=== PATIENT | female | born 1990 | race Caucasian/White ===

== ENCOUNTER 2017-06-30 09:49 | Emergency (ER) | payer BC, MEDICAID, OTHER ==
[~2017-06-30] VITALS: Ht 165.1 cm; Wt 67.0 kg
[2017-06-30 11:00] VITALS: BP 123/66
== END 2017-06-30 11:57 | disposition home or self-care (01) ==
LOC: ER 11:52
DX: S60.561A Insect bite (nonvenomous) of right hand, initial encounter (principal); W57.XXXA Bitten or stung by nonvenomous insect and other nonvenomous arthropods, initial encounter; Y93.89 Activity, other specified; Y92.89 Other specified places as the place of occurrence of the external cause; Y99.8 Other external cause status
CPT/HCPCS: 99281

== ENCOUNTER → 2020-04-11 | Outpatient (CLI) | payer BC ==
[~2020-04-11] MED LIST: GADOBENATE DIMEGLUMINE 529 MG/ML 10ML IV ONE
== END | disposition home or self-care (01) ==
LOC: RAD 11:20
PROVIDERS: ATTEND Obstetrics & Gynecology Obstetrics
DX: Q51.3 Bicornate uterus (principal); Q51.20 Other doubling of uterus, unspecified
CPT/HCPCS: 72197; A9577

== ENCOUNTER → 2020-04-15 | Outpatient (CLI) | payer BC | END | disposition home or self-care (01) | LOC: LAB 08:10 | PROVIDERS: ATTEND Obstetrics & Gynecology Obstetrics | DX: Z01.818 Encounter for other preprocedural examination (principal); Z11.59 Encounter for screening for other viral diseases | CPT/HCPCS: C9803; U0003 ==

== ENCOUNTER → 2020-04-18 | Outpatient (CLI) | payer BC | END | disposition home or self-care (01) | LOC: MAMMO 08:43 | PROVIDERS: ATTEND Obstetrics & Gynecology Obstetrics | DX: Z12.31 Encounter for screening mammogram for malignant neoplasm of breast (principal); Z80.3 Family history of malignant neoplasm of breast | CPT/HCPCS: 76642; 77067 ==

== ENCOUNTER 2020-07-08 21:52 | Emergency (ER) | payer BC ==
[~2020-07-08] VITALS: Ht 167.6 cm; Wt 75.0 kg
[2020-07-08 23:17] VITALS: BP 144/94
== END 2020-07-08 23:37 | disposition home or self-care (01) ==
LOC: ER 23:22
DX: T78.40XA Allergy, unspecified, initial encounter (principal); X58.XXXA Exposure to other specified factors, initial encounter
CPT/HCPCS: 99283

== ENCOUNTER 2022-11-16 10:40 | Emergency (ER) | payer BC ==
[~2022-11-16] VITALS: Ht 165.1 cm; Wt 85.0 kg
[2022-11-16] MEDS ORDERED: HYDR-4001 MT (12:00)
[2022-11-16] MEDS ORDERED: IBUPROFEN 600MG TABLET PO ONE (12:00)
[2022-11-16 12:14] VITALS: BP 118/82
== END 2022-11-16 12:27 | disposition home or self-care (01) ==
LOC: ER 10:40
DX: S96.812A Strain of other specified muscles and tendons at ankle and foot level, left foot, initial encounter (principal); X58.XXXA Exposure to other specified factors, initial encounter; Y93.67 Activity, basketball; Y92.89 Other specified places as the place of occurrence of the external cause; Y99.8 Other external cause status
CPT/HCPCS: 81025; 99282

== ENCOUNTER → 2022-11-23 | Outpatient (CLI) | payer BC ==
[~2022-11-23] MED LIST changes: -GADOBENATE DIMEGLUMINE 529 MG/ML 10ML IV ONE; +HYDR-4001 MT
== END | disposition home or self-care (01) ==
LOC: MRI 10:37
PROVIDERS: ATTEND Internal Medicine
DX: S86.012A Strain of left Achilles tendon, initial encounter (principal); X58.XXXA Exposure to other specified factors, initial encounter; Y93.89 Activity, other specified; Y92.89 Other specified places as the place of occurrence of the external cause; Y99.8 Other external cause status
CPT/HCPCS: 73721

== ENCOUNTER → 2022-11-30 | Day surgery (SDC) | payer BC ==
[~2022-11-30] VITALS: Ht 165.1 cm; Wt 84.8 kg
[~2022-11-30] MED LIST changes: +ALBUTEROL 6.7GM HFA INHALER ONE; +BUPIVACAINE HCL/PF 0.25% (2.5MG/ML) 10ML ONE; +CEFAZOLIN SODIUM 1000MG/VIAL ONE; +DEXAMETHASONE 4MG/ML 1ML VIAL ONE; +FENTANYL CITRATE/PF 50MCG/ML 2ML VIAL ONE; +GLYCOPYRROLATE 0.2 MG/ML 2ML VIAL ONE; +HYDROMORPHONE HCL/PF 2MG/ML CPJ IV PRN; +HYDROMORPHONE HCL/PF 2MG/ML CPJ ONE; +LACTATED RINGERS 1,000 ML IV SCH; +LIDOCAINE HCL 1% 20ML VIAL (Pyxis) INJ ONE; +LIDOCAINE HCL/EPINEPHRINE 1%-EPI 1:100,000 20 ML VIAL ONE; +MEPERIDINE HCL/PF 25MG/ML CPJ IV PRN; +METOCLOPRAMIDE HCL 10MG/2ML VIAL ONE; +MIDAZOLAM HCL 2 MG/2 ML VIAL ONE; +NALOXONE HCL 0.4MG/ML VIAL IV PRN; +ONDANSETRON HCL 4MG/2ML INJ IV PRN; +ONDANSETRON HCL 4MG/2ML INJ ONE; +POLYMYXIN B SULFATE 500000 UNITS/VIAL ONE; +PROPOFOL 200MG/20ML VIAL IV ONE; +ROCURONIUM BROMIDE 10MG/ML VIAL 5ML IV ONE; +ROPIVACAINE HCL 1% 20 ML VIAL EPI ONE; +SODIUM CHLORIDE 0.9% 1,000 ML IV SCH; +VANCOMYCIN HCL 1 GM/VIAL ONE
[2022-11-30 11:38] LABS: CLARITY URINE CLEAR (CLEAR); COLOR URINE YELLOW (YELLOW); KETONES URINE NEGATIVE (NEGATIVE); LEUKOCYTE ESTERASE URINE 1+ (NEGATIVE); NITRITE URINE NEGATIVE (NEGATIVE); OCCULT BLOOD URINE NEGATIVE (NEGATIVE); PROTEIN URINE NEGATIVE (NEGATIVE); SPECIFIC GRAVITY URINE 1.022 (1.005-1.030)
[2022-11-30 11:40] LABS: UCG SCREEN NEGATIVE
[2022-11-30 11:48] LABS: BASOPHILS % 0.3 % (0.0-2.0); EOSINOPHILS % 0.8 % (0.0-5.0); HEMATOCRIT. 43.7 % (36.0-48.0); HEMOGLOBIN. 15.5 g/dL (12.0-16.0); LYMPHOCYTES % 24.9 % (20.0-50.0); MEAN CORPUSCULAR VOLUME 93.2 fL (81.0-99.0); MEAN PLATELET VOLUME 8.2 fl (7.4-10.4); PLATELET 383 x1000/uL (130-400); RED BLOOD CELL COUNT 4.69 mill/uL (4.2-5.4); RED CELL DISTRIBUTION WIDTH 12.4 % (11.6-14.6)
[2022-11-30 11:49] LABS: CHLORIDE 106 mEq/L (98-107)
== END | disposition home or self-care (01) ==
LOC: OR 11:10
DX: S86.012A Strain of left Achilles tendon, initial encounter (principal); Z79.899 Other long term (current) drug therapy; Z98.890 Other specified postprocedural states; Z20.822 Contact with and (suspected) exposure to COVID-19; X58.XXXA Exposure to other specified factors, initial encounter; Y93.89 Activity, other specified; Y92.89 Other specified places as the place of occurrence of the external cause; Y99.8 Other external cause status
CPT/HCPCS: 27650; 36415; 80053; 81003; 81025; 85025; 87426; C9803; J0690; J1100; J1170; J2250; J2405; J2704; J2765; J3010; J3370; J3490; J2795

== ENCOUNTER → 2024-03-28 | Outpatient (CLI) | payer BC ==
[~2024-03-28] MED LIST changes: -ALBUTEROL 6.7GM HFA INHALER ONE; -BUPIVACAINE HCL/PF 0.25% (2.5MG/ML) 10ML ONE; -CEFAZOLIN SODIUM 1000MG/VIAL ONE; -DEXAMETHASONE 4MG/ML 1ML VIAL ONE; -FENTANYL CITRATE/PF 50MCG/ML 2ML VIAL ONE; -GLYCOPYRROLATE 0.2 MG/ML 2ML VIAL ONE; -HYDROMORPHONE HCL/PF 2MG/ML CPJ IV PRN; -HYDROMORPHONE HCL/PF 2MG/ML CPJ ONE; -LACTATED RINGERS 1,000 ML IV SCH; -LIDOCAINE HCL 1% 20ML VIAL (Pyxis) INJ ONE; -LIDOCAINE HCL/EPINEPHRINE 1%-EPI 1:100,000 20 ML VIAL ONE; -MEPERIDINE HCL/PF 25MG/ML CPJ IV PRN; -METOCLOPRAMIDE HCL 10MG/2ML VIAL ONE; -MIDAZOLAM HCL 2 MG/2 ML VIAL ONE; -NALOXONE HCL 0.4MG/ML VIAL IV PRN; -ONDANSETRON HCL 4MG/2ML INJ IV PRN; -ONDANSETRON HCL 4MG/2ML INJ ONE; -POLYMYXIN B SULFATE 500000 UNITS/VIAL ONE; -PROPOFOL 200MG/20ML VIAL IV ONE; -ROCURONIUM BROMIDE 10MG/ML VIAL 5ML IV ONE; -ROPIVACAINE HCL 1% 20 ML VIAL EPI ONE; -SODIUM CHLORIDE 0.9% 1,000 ML IV SCH; -VANCOMYCIN HCL 1 GM/VIAL ONE
[2024-03-28 11:48] LABS: BASOPHILS % 0.4 % (0.0-2.0); EOSINOPHILS % 0.7 % (0.0-5.0); HEMATOCRIT. 39.4 % (36.0-48.0); LYMPHOCYTES % 20.1 % (20.0-50.0); MEAN CORPUSCULAR HEMOGLOBIN 32.4 pg (28.0-32.0); MEAN CORPUSCULAR HGB CONC 35.4 g/dL (31.0-37.0); MEAN CORPUSCULAR VOLUME 91.5 fL (81.0-99.0); MEAN PLATELET VOLUME 8.4 fl (7.4-10.4); MONOCYTES % 8.8 % (2.0-8.0); PLATELET 329 x1000/uL (130-400); RED BLOOD CELL COUNT 4.31 mill/uL (4.2-5.4); RED CELL DISTRIBUTION WIDTH 13.7 % (11.6-14.6); WHITE BLOOD COUNT 6.3 x1000/uL (4.5-11.0)
[2024-03-28 13:46] LABS: HEPATITIS B SURFACE ANTIGEN NEGATIVE (Negative)
[2024-03-28 14:06] LABS: HEPATITIS A AB IGM NEGATIVE (Negative)
[2024-03-28 14:07] LABS: HEPATITIS B CORE AB IGM NEGATIVE (Negative); HEPATITIS C AB NON REACTIVE (Neg) (Negative)
[2024-03-28 21:07] LABS: THYROID STIMULATING HORMONE 3.44 uIU/mL (0.55-4.78)
[2024-03-28 21:08] LABS: T4 FREE 0.9 ng/dL (0.89-1.76)
[2024-03-29 09:12] LABS: T PALLIDUM FTA-ABS SERUM Non Reactive (Non Reactive)
[2024-03-30 04:10] LABS: RUBELLA ABS IGM < 20.0 AU/mL (0.0-19.9)
== END | disposition home or self-care (01) ==
LOC: LAB 10:30
PROVIDERS: ATTEND Obstetrics & Gynecology Obstetrics
DX: Z34.00 Encounter for supervision of normal first pregnancy, unspecified trimester (principal); E55.9 Vitamin D deficiency, unspecified
CPT/HCPCS: 36415; 82306; 83021; 83036; 84439; 84443; 85025; 85660; 86592; 86705; 86706; 86709; 86762; 86765; 86850; 86900; 87340; 87389

== ENCOUNTER → 2024-03-31 | Outpatient (CLI) | payer BC | END | disposition home or self-care (01) | LOC: LAB 07:28 | PROVIDERS: ATTEND Obstetrics & Gynecology Obstetrics | DX: Z34.00 Encounter for supervision of normal first pregnancy, unspecified trimester (principal); E55.9 Vitamin D deficiency, unspecified | CPT/HCPCS: 36415; 82947; 83021; 85660 ==

== ENCOUNTER → 2024-07-20 | Outpatient (CLI) | payer BC ==
[2024-07-20 07:48] LABS: GLUCOSE FASTING 114 mg/dL (70-105)
== END | disposition home or self-care (01) ==
LOC: LAB 06:49
PROVIDERS: ATTEND Obstetrics & Gynecology Obstetrics
DX: Z13.1 Encounter for screening for diabetes mellitus (principal)
CPT/HCPCS: 36415; 82947; 82950